=== PATIENT | male | born 1955 | race American Indian/Alaskan Native ===

== ENCOUNTER 2017-08-02 06:10 | Day surgery (SDC) | payer BC ==
[~2017-08-02 06:10] MED LIST: NACL 0.9% 1000 ML 1,000 ML IV SCH; PEPCID PO NR
[2017-08-02] MEDS ORDERED: NACL BACTERIOSTATIC INFILTRATI ONE (06:38)
[2017-08-02] MEDS ORDERED: DIPRIVAN 10 MG/ML IV ONE (06:52)
[2017-08-02] MEDS ORDERED: XYLOCAINE MPF 2% ONE (06:53)
[2017-08-02] MEDS ORDERED: DECADRON ONE (06:53)
[2017-08-02] MEDS ORDERED: DILAUDID ONE (06:53)
[2017-08-02] MEDS ORDERED: ZOFRAN ONE (06:53)
[2017-08-02] MEDS ORDERED: ANCEF/STERILE WATER 2 GM/20 ML IV NR (07:00)
[2017-08-02] MEDS ORDERED: VERSED IV PRN (07:15)
--- NOTE | 2017-08-02 07:15 | Anesthesia Consultation ---
Anesthesia Consult and Med Hx Date of service: 08/02/17 - Airway Anesthetic Teeth Evaluation: Dentures ROM Head & Neck: Adequate Mental/Hyoid Distance: Adequate Mallampati Class: Class IV Intubation Access Assessment: Possibly Difficult - Pulmonary Exam CTA: Yes - Cardiac Exam Cardiac Exam: RRR - Pre-Operative Health Status ASA Pre-Surgery Classification: ASA3 Proposed Anesthetic Plan: General - Pulmonary Hx Smoking: Yes (STOPPED X 20 YRS- 1 1/2PPD X 25 YRS) Hx Sleep Apnea: Yes (DX SLEEP APNEA , NO CPAP) - Cardiovascular System Hx Hypertension: Yes (X 4 YRS) - Central Nervous System Hx Seizures: Yes (ON MEDS-LAST SEIZURE 5 YRS AGO) - Endocrine Hx Non-Insulin Dependent Diabetes: Yes - Other Systems Hx Cancer: No - Additional Comments Anesthesia Medical History Comments: NAC previously.
--- NOTE | 2017-08-02 07:17 | Anesthesia Day of Surgery ---
Anesthesia Day of Surgery - Day of Surgery Patient Examined: Yes Patient H&P Reviewed: Yes Patient is NPO: Yes
[2017-08-02 07:25] LABS: Basophils % (Auto) 0.9 % (0.0-1.8); Eosinophils % (Auto) 2.4 % (0.0-4.3); Hematocrit 45.2 % (35.5-45.6); Hemoglobin 14.6 gm/dl (11.8-15.2); Mean Corpuscular HGB Conc 32 % (32-34); Mean Corpuscular Hemoglobin 27 pg (28-32); Mean Corpuscular Volume 85 fl (84-94); Platelet Count 203 K/mm3 (140-440); Red Blood Count 5.32 M/mm3 (3.65-5.03); White Blood Count 7.3 K/mm3 (4.5-11.0)
[2017-08-02] MEDS ORDERED: MARCAINE-EPI/PF 0.5%-1:200,000 INFILTRATI ONE (07:28)
[2017-08-02] MEDS ORDERED: NACL 0.9% IR ONE (08:00)
[2017-08-02] MEDS ORDERED: MARCAINE-EPI 0.5%-1:200,000 INFILTRATI ONE (08:00)
[2017-08-02 09:27] VITALS: BP 125/74
--- NOTE | 2017-08-02 09:48 | Operative Report ---
SERVICE: Plastic Surgery PREOPERATIVE DIAGNOSIS: Keloid of chest. POSTOPERATIVE DIAGNOSIS: Keloid of chest. PROCEDURE: 1. Excision benign neoplasm of chest greater than 4 cm. 2. Adjacent tissue transfer, closure of chest approximately 60 square cm. SURGEON: José Miguel Lerma MD DESCRIPTION OF PROCEDURE: The patient was brought to the operating room and placed on the table in supine position. Following administration of general anesthesia, the chest was prepped with a Betadine solution and draped in usual sterile manner. Local anesthesia was infiltrated consisting of 0.25% Marcaine with epinephrine followed by a circumferential excision of the keloid tumor, sent to Pathology as specimen. Hemostasis controlled using the electrocautery. Undermining of skin flaps superiorly and inferiorly was performed followed by rotation and advancement tissue across the defect to achieve closure without undue tension using interrupted and running subcuticular 2-0 Monocryl sutures. Mastisol, Steri-Strips, and sterile dressings applied. The patient tolerated the procedure well and returned to recovery room in stable condition and will be undergoing radiation therapy later today. JOB# [id number] FTW/NTS
--- NOTE | 2017-08-02 09:52 | Post Anesthesia Evaluation ---
- Post Anesthesia Evaluation Patient Participated: Yes Airway Patent: Yes Stable Respiratory Function: Yes Temp > 96.8F: Yes Pain Manageable: Yes Adequeate Hydration: Yes Anesthesia Complications: No
--- NOTE | 2017-08-02 16:36 | Discharge Summary ---
Short Stay Discharge Plan Activity: other (NO UPPER BODY STRENUOUS ACTIVITY OR RAISING ARMS ABOVE HEAD) Weight Bearing Status: Full Weight Bearing Diet: regular Wound: remove dressing (72HRS) Additional Instructions: GO TO DR. BRENNAN ALBERT'S OFFICE IMMEDIATELY AFTER LEAVING [facility]. [facility] DR. BRENNAN ALBERT [address] [place] [address] PHONE [phone] Follow up with: PRIMARY CAREMD [Primary Care Provider] - 6 Weeks WORK,ELE Dow JR, MD [Staff Physician] - 7 Days Forms: Outpatient Surgery [facility].
--- NOTE | 2017-08-02 16:39 | Short Stay Summary ---
Short Stay Documentation Date of service: 08/02/17 - Allergies and Medications Current Medications: Allergies No Known Allergies Allergy (Verified 07/28/17 16:42) Home Medications Medication Instructions Recorded Confirmed Last Taken Type Acetaminophen [Tylenol Arthritis] 650 mg PO PRN PRN 07/28/17 08/02/17 07/31/17 History Amlodipine Besylate/Benazepril 1 cap PO DAILY 07/28/17 07/28/17 08/02/17 05:00 History [Amlodipine-Benazepril 10-20 mg] Bisoprolol/Hctz [Ziac 2.5-6.25] 1 each PO DAILY 07/28/17 07/28/17 08/02/17 05: 00 History Invokamet 150-1,000 mg Tablet 1 tab PO BID 07/28/17 08/02/17 08/01/17 History Pravastatin Sodium [Pravastatin] 40 mg PO QHS 07/28/17 07/28/17 08/02/17 05:00 History levETIRAcetam [Keppra TAB] 1,000 mg PO BID 07/28/17 07/28/17 08/02/17 05:00 History - Brief post op/procedure progress note Date of procedure: 08/02/17 Pre-op diagnosis: KELOID OF CHEST Post-op diagnosis: same Procedure: EXCISION OF BENIGN NEOPLASM FROM CHEST >4 CM ADJ. TISSUE TRANSFER~60CM2 Anesthesia: GETA Surgeon: ELE HOLLINS JR Estimated blood loss: minimal Specimen disposition: to lab Condition: stable - Disposition Condition at discharge: Good Disposition: DC-01 TO HOME OR SELFCARE Short Stay Discharge Plan Additional Instructions: GO TO DR. BRENNAN ALBERT'S OFFICE IMMEDIATELY AFTER LEAVING [facility]. [facility] DR[facility] BRENNAN ALBERT [address] [place] [address] PHONE [phone] Follow up with: ELE HOLLINS JR, MD [Staff Physician] - 7 Days PRIMARY CAREMD [Primary Care Provider] - 6 Weeks Forms: Outpatient Surgery [facility].
== END 2017-08-02 10:30 | disposition home or self-care (01) ==
LOC: OR 06:10
PROVIDERS: ATTEND Plastic Surgery
DX: L91.0 Hypertrophic scar (principal); I10 Essential (primary) hypertension; E11.9 Type 2 diabetes mellitus without complications; M19.90 Unspecified osteoarthritis, unspecified site; Z87.891 Personal history of nicotine dependence; Z79.899 Other long term (current) drug therapy; Z98.890 Other specified postprocedural states; Z72.89 Other problems related to lifestyle
CPT/HCPCS: 14301; 36415; 82962; 84132; 85025; 88305; J0690; J1100; J1170; J2250; J2405; J2704; J7030; 88307